=== PATIENT | male | born 2000 | race Caucasian/White ===

== ENCOUNTER → 2020-05-17 | Outpatient (CLI) | payer OTHER ==
--- NOTE | 2020-05-18 10:13 | RADIOLOGY REPORT (SQ) ---
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 TECHNIQUE: Static and realtime montanez scale imaging of the scrotum and testes. Selected color Doppler and spectral images recorded to document blood flow. LIMITATIONS: None. FINDINGS: RIGHT: TESTICLE: Normal size. Normal echotexture. Normal blood flow. No mass. EPIDIDYMIS: Normal. HYDROCELE OR VARICOCELE: No. HERNIA OR EXTRA-TESTICULAR MASS: No. OTHER: The palpable abnormality corresponds to 8 midline scrotal lesion measured at 1.1 x 0.9 x 0.6 c m. It appears solid. There is peripheral flow. LEFT: TESTICLE: Normal size. Normal echotexture. Normal blood flow. No mass. EPIDIDYMIS: Normal. HYDROCELE OR VARICOCELE: No. HERNIA OR EXTRA-TESTICULAR MASS: No. OTHER: No other significant finding. IMPRESSION: 1. No evidence of torsion or intratesticular mass. 2. 1.1 x 0.9 x 0.6 cm hypoechoic solid lesion at the area of palpable abnormality. Most likely foca l infectious or inflammatory process. Further evaluation should be based on clinical findings. TECHNICAL DOCUMENTATION: JOB ID: [id number] [employer]- All Rights Reserved Reading location - IP/workstation name: [email or web address]
== END ==
LOC: RAD 15:37
PROVIDERS: ATTEND Internal Medicine
DX: D29.4 Benign neoplasm of scrotum (principal)
CPT/HCPCS: 76870